=== PATIENT | female | born 1980 | race Caucasian/White ===

== ENCOUNTER 2018-03-06 12:24 | Emergency (ER) | payer MEDICAID ==
--- NOTE | 2018-03-06 13:18 | ER Document Report ---
HPI - HPI Patient complains to provider of: Left fifth toe injury Onset: This morning Quality of pain: Throbbing Pain Level: 3 Context: 37-year-old female kicked her son's soccer bag causing her left fifth toe to angulate strangely. She took Motrin so the pain is tolerable at this time. Associated Symptoms: None Exacerbated by: Movement - Unable to move it because it is angulated, she can feel me touch at the Relieved by: Denies Similar symptoms previously: No Recently seen / treated by doctor: No - ROS ROS below otherwise negative: Yes Systems Reviewed and Negative: Yes All other systems reviewed and negative Past Medical History - General Information source: Patient - Social History Smoking Status: Current Every Day Smoker Frequency of alcohol use: None Drug Abuse: None Lives with: Family Family History: Reviewed & Not Pertinent - Medical History Medical History: Negative Surgical Hx: Negative Vertical Provider Document - CONSTITUTIONAL Agree With Documented VS: Yes Exam Limitations: No Limitations General Appearance: No Apparent Distress - INFECTION CONTROL TRAVEL OUTSIDE OF THE [place] IN LAST 30 DAYS: No - HEENT HEENT: Normocephalic - NECK Neck: Supple - MUSCULOSKELETAL/EXTREMETIES Musculoskeletal/Extremeties: Tender - base of left 5th toe with fibular angulation/ ecchymosis, Edema - NEURO Level of Consciousness: Awake Motor/Sensory: No Sensory Deficit Course - Re-evaluation Re-evalutation: 03/06/18 13:32 Patient wanted me to try relocating the toe without local anesthesia and when I applied traction she got to a point where it was too painful so I will get an x- ray in moment locally. 03/06/18 toe is sprial fx, will apply traction and darnell tape to straighten. - Vital Signs Vital signs: Temp Pulse Resp BP Pulse Ox 98.0 F 86 14 127/78 H 100 03/06/18 12:28 03/06/18 12:28 03/06/18 12:28 03/06/18 12:28 03/06/18 12:28 Procedures - Immobilization Left Toe 5th digit Time completed: 14:01 Pre-Proc Neuro Vasc Exam: Normal Immobilizer type: Post-op shoe, Other - darnell tape Performed by: Provider Post-Proc Neuro Vasc Exam: Normal Alignment checked and good: Yes Discharge - Discharge Clinical Impression: Spiral fracture proximal left fifth toe Condition: Good Disposition: HOME, SELF-CARE Instructions: Acetaminophen, Darnell Taping (toes) ([facility]), Use of Over-The- Counter Ibuprofen ([facility]), Post-Op Shoe ([facility]), Fractured Toe ([facility]) Additional Instructions: darnell tape for a month see orthopedic doctor for follow up next week to er any concerns tylenol motrin Referrals: LIDIA FIGUEROA MD [ACTIVE STAFF] - Follow up as needed
[2018-03-06] MEDS ORDERED: LIDOCAINE 1% INJ-PF (10 MG/ML) 30 ML SDV INJ ONE (13:19)
--- NOTE | 2018-03-06 13:57 | RADIOLOGY REPORT (SQ) ---
EXAM DESCRIPTION: TOE LEFT COMPLETED DATE/TIME: 03/06/2018 1:40 pm REASON FOR STUDY: injury 5th toe COMPARISON: None. NUMBER OF VIEWS: Three views. TECHNIQUE: AP, lateral, and oblique images acquired of the left fifth toe. LIMITATIONS: None. FINDINGS: MINERALIZATION: Normal. BONES: There is an oblique fracture involving the proximal phalanx of the 5th digit. No other eviden ce for fracture is seen. JOINTS: No effusions. SOFT TISSUES: No soft tissue swelling. No foreign body. OTHER: No other significant finding. IMPRESSION: Oblique fracture involving the proximal phalanx of the 5th digit COMMENT: SITE OF TRAUMA/COMPLAINT MARKED/STAMP COMPLETED: No TECHNICAL DOCUMENTATION: JOB ID: [id number] [employer]- All Rights Reserved Reading location - IP/workstation name: [email or web address]
[2018-03-06 14:13] VITALS: BP 112/61
== END 2018-03-06 14:10 | disposition home or self-care (01) ==
LOC: ER 12:24
DX: S92.512A Displaced fracture of proximal phalanx of left lesser toe(s), initial encounter for closed fracture (principal); W22.8XXA Striking against or struck by other objects, initial encounter; F17.200 Nicotine dependence, unspecified, uncomplicated
CPT/HCPCS: 99283; 73660; J3490